=== PATIENT | male | born 1985 | race Hispanic/Latino ===

== ENCOUNTER 2020-04-08 22:41 | Emergency (ER) | payer OTHER ==
[~2020-04-08] VITALS: Ht 160 cm; Wt 83.5 kg
[2020-04-08] MEDS ORDERED: NAPHCON-A EYE D15 ML OU (23:52)
[2020-04-08] MEDS ORDERED: AZITHROMYCIN500 MG PO (23:52)
[2020-04-08] MEDS ORDERED: PREDNISONE20 MG PO (23:52)
--- NOTE | 2020-04-08 23:53 | Emergency Department Note ---
History of Present Illnes History of Present Illness Chief Complaint: burnong eyes History of Present Illness This is a 34 year old male. was doing well prior to this. 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 Onset (how long ago): hour(s) (5) Location: n/a Quality: burning Radiation: non-radiation Severity: moderate Onset quality: gradual Duration (how long): hour(s) (5) Timing of current episode: constant Progression: worsening Chronicity: new Context: recent illness, recent surgery, recent immobilization, recent travel, trauma/injury, new medications, hx of DVT/PE, non-compliance w/ medications Relieving factors: none Exacerbating factors: none Associated symptoms: cough, malaise Treatments prior to arrival: none Past Medical/Family History Physician Review I have reviewed the patient's past medical and family history. Any updates have been documented here. Past Medical History Recent Fever: No Clinical Suspicion of Infectio: No New/Unexplained Change in Ment: No Past Medical History: None Past Surgical History: Cholecysctectomy, Appendectomy, Social History Smoking Cessation: Never Smoker Counseling Performed: No Alcohol Use: None Any Illegal Drug Use: No TB Exposure/Symptoms: No Physically hurt or threatened: No Family History Family history of heart diseas: No Other Last Tetanus: UNKNOWN Any Pre-Existing Lines (PICC,: No Is patient up to date on immun: No Last Flu: NO Last Pneumovax: NO Review of Systems Review of Systems Constitutional: as per HPI EENTM: as per HPI Cardiovascular: no symptoms Respiratory: as per HPI Gastrointestinal: no symptoms Genitourinary: no symptoms Musculoskeletal: no symptoms Neurological: no symptoms Psychological: no symptoms Endocrine: no symptoms Hematological/Lymphatic: no symptoms Review of other systems All other systems reviewed and negative. Physical Exam Related Data Allergies: Coded Allergies: No Known Allergies (Unverified , 04/08/20) Triage Vital Signs Vital Signs Date Time Temp Pulse Resp B/P (MAP) Pulse Ox O2 Delivery O2 Flow Rate FiO2 04/08/20 23:30 98.2 86 17 130/82 98 Vital signs reviewed: Yes Physical Exam CONSTITUTIONAL Constitutional: well-developed, well-nourished HENT HENT: normocephalic, atraumatic, oropharynx clear/moist, nose normal HENT L/R: left ext ear normal, right ext ear normal EYES Eyes: PERRL (+conjunctival injection) NECK Neck: ROM normal PULMONARY Pulmonary: effort normal, breath sounds normal CARDIOVASCULAR Cardiovascular: regular rhythm, heart sounds normal, capillary refill normal, normal rate GASTROINTESTINAL Abdominal: soft, nontender, bowel sounds normal GENITOURINARY Genitourinary: exam deferred SKIN Skin: warm, dry MUSCULOSKELETAL Musculoskeletal: ROM normal NEUROLOGICAL Neurological: alert, oriented x 3, no gross motor or sensory deficits PSYCHOLOGICAL Psychological: mood/affect normal, judgement normal Critical Care Time Subsequent provider I assumed direction of critical care for this patient from another provider of my specialty. Assessment & Plan Assessment & Plan Final Impression: (1) Seasonal allergic conjunctivitis (2) Seasonal allergic rhinitis (3) Acute bronchitis Assessment & Plan AZITHROMYCIN, PREDNISONE, NAPHCON-A Depart Disposition: HOME, SELF-CARE Last Vital Signs Date Time Temp Pulse Resp B/P (MAP) Pulse Ox O2 Delivery O2 Flow Rate FiO2 04/08/20 23:30 98.2 86 130/82 98 04/08/20 23:30 17 Home Meds Active Scripts Azithromycin (AZITHROMYCIN) 500 Mg Tablet, 500 MG PO DAILY, #5 TAB Prov:RUSTY JOHN 04/08/20 Naphazoline Hcl/Pheniramine (NAPHCON-A EYE DROPS) 15 Ml Drops, 1 DROP OU Q12H, #1 BOTTLE Prov:RUSTY JOHN 04/08/20 Prednisone (PREDNISONE) 20 Mg Tab, 60 MG PO DAILY, #18 TAB Prov:RUSTY JOHN 04/08/20 RUSTY JOHN Apr 08, 2020 23:53
== END 2020-04-09 00:15 | disposition home or self-care (01) ==
LOC: FSED 22:41
DX: R05 Cough (principal); J20.9 Acute bronchitis, unspecified; H10.13 Acute atopic conjunctivitis, bilateral; J30.2 Other seasonal allergic rhinitis
CPT/HCPCS: 99282